=== PATIENT | male | born 1980 | race Hispanic/Latino ===

== ENCOUNTER 2017-02-20 08:22 | Emergency (ER) | payer OTHER ==
[~2017-02-20] VITALS: Ht 185.4 cm; Wt 85.0 kg
[~2017-02-20 08:22] MED LIST: KEFLEX500 MG PO; LORTAB 5-325 M1 EACH PO; NO HOME MED
[2017-02-20] MEDS ORDERED: CYCLOBENZAPRINE5 MG PO (11:07)
[2017-02-20] MEDS ORDERED: NAPROSYN500 MG PO (11:08)
[2017-02-20] MEDS ORDERED: MOTRIN800 MG PO (11:28)
[2017-02-20 11:44] VITALS: BP 106/76
== END 2017-02-20 11:37 | disposition home or self-care (01) ==
LOC: EME 08:22
PROC: 2W3KX1Z Immobilization of Left Finger using Splint (ICD-10-PCS; principal; 2017-02-20)
DX: S60.222A Contusion of left hand, initial encounter (principal); Y99.0 Civilian activity done for income or pay; W22.8XXD Striking against or struck by other objects, subsequent encounter
CPT/HCPCS: 73130; 99281; 99283; J1885

== ENCOUNTER 2017-04-03 20:24 | Emergency (ER) | payer OTHER ==
[~2017-04-03] VITALS: Ht 185.4 cm; Wt 83.7 kg
[~2017-04-03 20:24] MED LIST changes: +CYCLOBENZAPRINE5 MG PO; +MOTRIN800 MG PO; +NAPROSYN500 MG PO
[2017-04-03 20:28] VITALS: BP 125/80
== END 2017-04-03 22:10 | disposition left against medical advice (07) ==
LOC: EME 20:24
DX: R42 Dizziness and giddiness (principal); Z53.21 Procedure and treatment not carried out due to patient leaving prior to being seen by health care provider